=== PATIENT | male | born 1945 | race Caucasian/White ===

== ENCOUNTER → 2020-10-25 | Outpatient (CLI) | payer MEDICARE ==
[2020-10-25 12:30] LABS: HEMATOCRIT 38.5 % (42-54); LYMPHOCYTES % (AUTO) 28.8 % (21.0-51.0); MEAN CORPUSCULAR HEMOGLOBIN 30.4 pg (27.0-33.0); MEAN CORPUSCULAR HGB CONC 33.5 g/dL (32.0-36.0); MEAN CORPUSCULAR VOLUME 90.8 fL (79-99); MONOCYTES % (AUTO) 9.6 % (3.0-13.0); NEUTROPHILS % (AUTO) 56.5 % (40.0-77.0); PLATELET COUNT (AUTO) 167 K/uL (130-400); RED BLOOD CELL COUNT(AUTO) 4.24 MIL/uL (4.50-6.20); RED CELL DISTRIBUTION WIDTH 13.2 % (11.0-15.5); WHITE BLOOD COUNT (AUTO) 6.8 K/uL (4.8-10.8)
[2020-10-25 12:42] LABS: CREATININE 1.1 mg/dL (0.5-1.5)
== END | disposition home or self-care (01) ==
LOC: LAB 11:35
PROVIDERS: ATTEND Urology
DX: N30.20 Other chronic cystitis without hematuria (principal); N43.2 Other hydrocele
CPT/HCPCS: 36415; 80048; 85025

== ENCOUNTER → 2020-10-28 | Outpatient (CLI) | payer MEDICARE ==
[~2020-10-28] MED LIST: IOHEXOL-350 75 ML VIAL IV ONE
== END | disposition home or self-care (01) ==
LOC: RAH 07:55
PROVIDERS: ATTEND Urology
DX: N32.89 Other specified disorders of bladder (principal); N30.20 Other chronic cystitis without hematuria; N43.2 Other hydrocele; K57.30 Diverticulosis of large intestine without perforation or abscess without bleeding
CPT/HCPCS: 74178; 76870; Q9967

== ENCOUNTER → 2022-04-17 | Outpatient (CLI) | payer OTHER | END | disposition home or self-care (01) | LOC: RAH 11:02 | PROVIDERS: ATTEND Family Medicine | DX: E11.9 Type 2 diabetes mellitus without complications (principal); E78.5 Hyperlipidemia, unspecified; R06.00 Dyspnea, unspecified; I34.0 Nonrheumatic mitral (valve) insufficiency | CPT/HCPCS: 93306 ==

== ENCOUNTER → 2022-04-30 | Outpatient (CLI) | payer OTHER ==
[~2022-04-30] MED LIST changes: -IOHEXOL-350 75 ML VIAL IV ONE; +REGADENOSON 0.4 MG/5 ML PF SYG IVP ONE
== END | disposition home or self-care (01) ==
LOC: SHCH 09:25
PROVIDERS: ATTEND Internal Medicine Cardiovascular Disease
DX: I48.91 Unspecified atrial fibrillation (principal); I48.92 Unspecified atrial flutter; I45.2 Bifascicular block; I49.3 Ventricular premature depolarization; I49.1 Atrial premature depolarization; I10 Essential (primary) hypertension; E78.5 Hyperlipidemia, unspecified; R00.0 Tachycardia, unspecified; Z95.0 Presence of cardiac pacemaker; Z79.01 Long term (current) use of anticoagulants; Z79.899 Other long term (current) drug therapy
CPT/HCPCS: 78452; 96374; 93017; J2785; A9500 ×2

== ENCOUNTER 2022-05-25 05:48 | Day surgery (SDC) | payer OTHER ==
[2022-05-22 09:14] LABS: EOSINOPHILS % (AUTO) 4.1 % (0.0-8.0); HEMATOCRIT 39.8 % (42-54); LYMPHOCYTES % (AUTO) 27.3 % (21.0-51.0); MEAN CORPUSCULAR HEMOGLOBIN 30.3 pg (27.0-33.0); MEAN CORPUSCULAR HGB CONC 33.4 g/dL (32.0-36.0); MEAN CORPUSCULAR VOLUME 90.7 fL (79-99); MONOCYTES % (AUTO) 10.6 % (3.0-13.0); NEUTROPHILS % (AUTO) 56.6 % (40.0-77.0); PLATELET COUNT (AUTO) 163 K/uL (130-400); RED BLOOD CELL COUNT(AUTO) 4.39 MIL/uL (4.50-6.20); RED CELL DISTRIBUTION WIDTH 13.1 % (11.0-15.5); WHITE BLOOD COUNT (AUTO) 7.3 K/uL (4.8-10.8)
[2022-05-22 09:28] LABS: CREATININE 1.2 mg/dL (0.5-1.5); POTASSIUM 4.4 mmol/L (3.5-5.1)
[2022-05-22 09:31] LABS: INR 1.62 (0.85-1.15); PROTHROMBIN TIME 17.2 SEC (9.6-11.6)
[2022-05-22 09:33] LABS: PARTIAL THROMBOPLASTIN TIME 32.7 SEC (26.3-35.5)
[2022-05-22 09:39] LABS: APPEARANCE,URINE CLEAR (CLEAR); BILIRUBIN,URINE NEGATIVE (NEGATIVE); COLOR,URINE YELLOW (YELLOW); GLUCOSE, URINE (UA) NEGATIVE (NEGATIVE); KETONES,URINE NEGATIVE (NEGATIVE); LEUKOCYTE ESTERASE ,URINE NEGATIVE (NEGATIVE); NITRATE,URINE NEGATIVE (NEGATIVE); OCCULT BLOOD,URINE NEGATIVE (NEGATIVE); PROTEIN,URINE NEGATIVE (NEGATIVE)
[2022-05-22 09:50] LABS: B-TYPE NATRIURETIC PEPTIDE 116 pg/mL (0-100)
[2022-05-24 08:44] VITALS: BP 133/84
[2022-05-25] VITALS (9 sets, daily range): BP systolic 132–153; BP diastolic 78–94
[~2022-05-25] VITALS: Ht 182.9 cm; Wt 95.3 kg
[~2022-05-25 05:48] MED LIST changes: +ALFU10TA9 PO; +ATOR10 PO; +FINA5TAB41 PO; +FURO20TA4 PO; +LOSA100T58 PO; +METF-444 PO; +METO-408 PO; -REGADENOSON 0.4 MG/5 ML PF SYG IVP ONE; +WARF-57 PO
[2022-05-25] MEDS ORDERED: 0.9% NACL 500ML IV.SOLN 500 ML IV SCH (06:00)
[2022-05-25] MEDS ORDERED: 0.9%NACL 1000ML 1,000 ML IV ONE ×2 (06:20→11:34)
[2022-05-25] MEDS ORDERED: IOHEXOL-350 50ML VIAL IV ONE (10:24)
[2022-05-25] MEDS ORDERED: IOHEXOL 350 MG/ML 100ML INFUS..BTL IV ONE (10:24)
[2022-05-25] MEDS ORDERED: LIDOCAINE HCL-MPF 2% 10ML AMP IJ ONE ×2 (10:24→10:48)
[2022-05-25] MEDS ORDERED: GLUCAGON 1MG KIT 1 MG ML IM PRN (11:30)
[2022-05-25] MEDS ORDERED: DEXTROSE 50%-WATER 50 ML DISP.SYRIN IV PRN (11:30)
== END 2022-05-25 16:10 | disposition home or self-care (01) ==
LOC: DAH 05:48
PROVIDERS: ATTEND Internal Medicine Cardiovascular Disease
DX: R94.39 Abnormal result of other cardiovascular function study (principal); R06.02 Shortness of breath; I11.0 Hypertensive heart disease with heart failure; I50.22 Chronic systolic (congestive) heart failure; I48.0 Paroxysmal atrial fibrillation; E78.5 Hyperlipidemia, unspecified; N40.0 Benign prostatic hyperplasia without lower urinary tract symptoms; K21.9 Gastro-esophageal reflux disease without esophagitis; Z79.899 Other long term (current) drug therapy; Z79.01 Long term (current) use of anticoagulants; Z79.84 Long term (current) use of oral hypoglycemic drugs; Z90.49 Acquired absence of other specified parts of digestive tract; Z85.828 Personal history of other malignant neoplasm of skin; Z82.49 Family history of ischemic heart disease and other diseases of the circulatory system; Z80.9 Family history of malignant neoplasm, unspecified; Z83.3 Family history of diabetes mellitus
CPT/HCPCS: 80048; 83880; 85025; 85610; 85730; 81003; 36415; 71045; 93005; 93458; 82948 ×2; C1894; C1760; Q9965; J7030 ×2; J3490 ×2; Q9967 ×2; A4215; A4222; A4221; A4663; A4216; A4606; A4223 ×3

== ENCOUNTER → 2022-08-22 | Outpatient (CLI) | payer OTHER ==
[~2022-08-22] MED LIST changes: +ALBUTEROL 0.083% 2.5 MG/3 ML INH IH ONE
== END | disposition home or self-care (01) ==
LOC: RESP 08:34
PROVIDERS: ATTEND Internal Medicine Cardiovascular Disease
DX: R06.00 Dyspnea, unspecified (principal); R06.02 Shortness of breath
CPT/HCPCS: 94060; 94727; 94729

== ENCOUNTER → 2023-05-30 | Outpatient (CLI) | payer OTHER ==
[~2023-05-30] MED LIST changes: -ALBUTEROL 0.083% 2.5 MG/3 ML INH IH ONE; -LOSA100T58 PO; +LOSA100T59 PO
== END | disposition home or self-care (01) ==
LOC: SHCH 12:29
PROVIDERS: ATTEND Internal Medicine Cardiovascular Disease
DX: I87.2 Venous insufficiency (chronic) (peripheral) (principal)
CPT/HCPCS: 93970